=== PATIENT | female | born 1940 | race Caucasian/White ===

== ENCOUNTER 2016-09-27 21:39 | Emergency (ER) | payer MEDICARE, BC ==
[2016-09-27 22:07] VITALS: BP 122/80
--- OUTSIDE RECORDS SUMMARY | 2016-09-27 22:55 | XMS REPORT | Continuity of Care Document ---
:1940 Author Organization [facility] ([facility]) Address [address] [place] [address] Phone [phone] Care Team Providers Name Role Phone NancykiaAlicia hernandezronn Primary Care Provider [phone] Source Comments This disclosure is being made pursuant to the Care Everywhere program, applicable federal and state laws, and may not contain all informaitonavailable regarding this patient.[facility] ([facility]) Active Allergies and Adverse Reactions Allergen Noted Date Severity Reactions Comments Atorvastatin Calcium 12/23/2014 Unknown Cephalexin Monohydrate 12/23/2014 Urticaria (Hives) Penicillins 12/23/2014 Urticaria (Hives) Current Medications Prescription Sig. Disp. Refills Start Date End Date Status calcium carbonate Take 600 Tabs by 07/22/2012 Active (CALTRATE 600) (600 mg mouth daily Ca) 1500 mg tablet LEVOTHYROXINE 25 mcg Take 25 mcg by 1 11/09/2014 Active tablet mouth daily LOSARTAN 25 mg tablet Take 25 mg by mouth 1 11/09/2014 Active daily METOPROLOL succinate 25 Take 25 mg by mouth 1 10/19/2014 Active mg XL tablet daily SIMVASTATIN 20 mg tablet Take 10 mg by mouth 1 12/14/2014 Active daily citalopram 20 mg tablet Take 20 mg by mouth 07/22/2012 Active daily SUPPLY FREESTYLE LITE 1 09/20/2015 Active test strips glipiZIDE 5 mg tablet Take 7.5 mg by 1 12/07/2015 Active mouth 2 times daily with meals. metFORMIN 500 mg tablet Take by mouth 2 12/01/2015 Active times daily. Take 1.5 tablets twice daily. meclizine 25 mg tablet Take 25 mg by mouth Active 3 times daily as needed. ranitidine 75 mg tablet Take 75 mg by mouth Active daily. multivitamin tablet Take 1 tablet by Active mouth daily. nitroglycerin 0.[address] 0.4 mg under Active tablet the tongue every 5 minutes as needed. Maximum of 3 tablets in 15 minutes. Active Problems Problem Noted Date Coronary artery disease 12/23/2014 Overview: Formatting of this note may be different from the original. 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 Patient did not have records of where the grafts are.) -2010 STRESS TESTS: [facility] (The stress echo results were normal. Target heart rate was achieved. Blood pressure response was normal. Moderately-high workload achieved. Normal resting wall motion and no stress-induced wall motion abnormality.) - 07/08/2009 MPI (EF.67, Normal Normal myocardial perfusion stress test. There is normal LV size, systolic function and regional wall motion.) - 02/09/2012 MPI: 1. Normal stress myocardial perfusion imaging with no evidence of obstructive CAD. LVEF is 73% .01/18/2015 Vascular: Carotid Duplex (The Doppler flow velocities within the right bulb are within normal limits, less than 50% stenosis. The Doppler flow velocities within the right internal carotid artery are within normal limits The Doppler flow velocities within the left bulb are elevated, consistent with an approximately 50 - 69% stenosis. The Doppler flow velocities within the left internal carotid artery are within normal limits, less than 50% stenosis. ) - 07/08/2009 Carotid Duplex (The Doppler flow velocities within the right internal carotid artery are within normal limits, less than 50% stenosis. The Doppler flow velocities within the left internal carotid artery are elevated, consistent with a 50 - 69% stenosis. ) - 07/22/2012 Carotid duplex: insignificant disease involving the right extracranial arteries. Velocity measurements on the left found an ICA velocity of 249 cm/s with a peak end-diastolic velocity of 74 cm/s. Her IC/CC ratio on the left was 3.6. This velocity would suggest a 50-69% stenosis.Review of the carotid CTA demonstrates a 65% stenosis involving the left ICA. 01/18/2015 ECHO Echo: Normal left ventricular systolic function. Mild left ventricular hypertrophy .Gr1 LV diastolic dysfunction (impaired relaxation pattern).Trace mitral regurgitationThe IVC does not appear to be significantly enlarged.01/18/2015 Essential (primary) hypertension 06/18/2014 Hypercholesterolemia without hypertriglyceridemia 01/30/2014 Diabetes Carotid artery disease Overview: Carotid duplex: insignificant disease involving the right extracranial arteries. Velocity measurements on the left found an ICA velocity of 249 cm/s with a peak end-diastolic velocity of 74 cm/s. HerIC/CC ratio on the left was 3.6. This velocity would suggest a 50-69% stenosis.Review of the carotid CTA demonstrates a 65% stenosis involving the left ICA. 01/18/2015 Social History Tobacco Use Types Packs/Day Years Used Date Never Smoker Smokeless Tobacco: Never Used Alcohol Use Drinks/Week oz/Week Comments No Last Filed Vital Signs Vital Sign Reading Time Taken Blood Pressure 138/70 01/04/2016 12:47 PM CDT Pulse 78 01/04/2016 12:47 PM CDT Temperature - - Respiratory Rate - - Height 1.524 m (5') 01/04/2016 12:47 PM CDT Weight 84.823 kg (187 lb) 01/04/2016 12:47 PM CDT Body Mass Index 36.52 01/04/2016 12:47 PM CDT Oxygen Saturation - - Plan of Care Date Type Specialty Providers Description 01/16/2017 Appointment Heart and Vascular Roselyn Stanton MD Chief Comp: Patient [address] [place] [address] Visit [phone] (Fax) Health Maintenance Due Date Last Done Comments Hepatitis B Vaccine (1 of 3 - Primary Series) 1940 Tdap Vaccine 1953 DIABETIC: Cholesterol 1960 Diabetic: Hdl 1960 DIABETIC: Hemoglobin A1C 1960 Diabetic: Ldl 1960 DIABETIC: Microalbumin 1960 DIABETIC: Triglycerides 1960 Td Vaccine 1960 Mammogram 1982 Colonoscopy 03/17/1992 Zoster Vaccine 2002 Osteoporosis Screening (DXA Bone Density) 2007 Pneumococcal Vaccine (1 of 2 - PCV13) 2007 DIABETIC: Foot Exam 12/23/2014 DIABETIC: Retinal Eye Exam 12/23/2014 Influenza Vaccine: Seasonal (#1) 03/06/2016 Results from Last 3 Months Not on file
--- NOTE | 2016-09-27 23:28 | ERNOTE ---
Time Seen by Provider: 09/27/16 22:45 Stated Complaint: COUGH, FEVER Presenting Symptoms:: cough Immunizations: IMMUNIZATION HX Immunizations Up to Date Yes History of Influenza Vaccine Yes Hx Pneumococcal Vaccination Yes Allergies/Adverse Reactions: Allergies cephalexin monohydrate [From Keflex] Allergy (Verified 08/06/15 11:46) Penicillins Allergy (Verified 08/06/15 11:46) Home Medications: HOME MEDICATIONS Promethazine HCl/Codeine [Phenergan W/Codeine Syrup] 5 ml PO Q4H PRN #180 ml 08/21 [Last Taken Unknown] Sulfamethoxazole/Trimethoprim [Bactrim Ds] 1 tab PO BID #28 tab 08/06/15 [Last Taken Unknown] - History of Present Ilness Narrative: x 2 weeks getting better Timing: other - getting better Severity: mild Frequency/Possible Cause: Reports: occasional episodes Modifying Factors - Worsens: Reports: activity, coughing Associated Symptoms: Reports: earache Prior Treatment: Reports: recently seen, treated by physician - today, given allergy medication Review of Systems - Review of Systems Constitutional: Present: recent illness, fever - two weeks ago EYE: Present: no symptoms reported ENT: Present: ear pain, nasal drainage Respiratory: Present: See HPI, cough Cardiology: Present: no symptoms reported Gastrointestinal/Abdominal: Present: no symptoms reported Genitourinary: Present: no symptoms reported Musculoskeletal: Present: no symptoms reported Skin: Present: no symptoms reported Neurological: Present: no symptoms reported Endocrine: Present: no symptoms reported Hematologic/Lymphatic: Present: no symptoms reported - Patient's Past Medical History Patient History - Medical: Diabetes Type 2, Hypothyroidism Patient History - Cancer: No Hx of Cancer Patient History - Surgical Procedures: Cardiac stent Patient History - Other: None LMP (females 10-50): Menopausal - Social History Living Situations: home Abuse History: No History of abuse Psych History: No pertinent hx Smoking Status: Never smoker Alcohol Use: none Drug Use: none - Immunizations Immunizations Up to Date: Yes Hx Pneumococcal Vaccination: Yes History of Influenza Vaccine: Yes Physical Exam - Physical Exam General Appearance: Present: wd/wn, alert, no apparent distress Ears, Nose, Throat: Present: nasal congestion Neck: Present: normal inspection, nontender Respiratory: Present: no respiratory distress, no accessory muscle use, lungs clear Cardiovascular/Chest: Present: regular rate, rhythm, no murmur Back Exam: Present: normal inspection, normal range of motion Extremity Exam: Present: non-tender, no edema Neurological Exam: Present: alert, oriented, normal mood/affect, no motor/ sensory deficits Skin Exam: Present: normal color, warm/dry ED Progress - Results and Orders Patient's Lab Results:: I have reviewed the patient's lab results. Results and Orders: Laboratory Tests 09/27/16 Unknown Influenza Type A Ag Negative Influenza Type B Ag Negative - Vital Signs Patient's Vital Signs:: I have reviewed the patient's vital signs. Vital Signs: Vital Signs 09/27/16 22:01 Temperature 36.3 C L Pulse Rate 62 Respiratory 16 Rate Blood Pressure 122/80 O2 Sat by Pulse 95 Oximetry - Progress/Reassessment Chief Complaint: Upper Respiratory Symptoms Departure - Departure Clinical Impression: Bronchitis Disposition: Home self-care Condition: Good Instructions: Acute Bronchitis, [id number] Additional Instructions: Take mucinex (or generic equivalent) twice a day until feeling better. follow up with your regular doctor if not improving Referrals: Jacinto Wallace MD [Primary Care Provider] -
== END 2016-09-27 23:51 | disposition home or self-care (01) ==
LOC: ER 21:39
DX: J40 Bronchitis, not specified as acute or chronic (principal)